=== PATIENT | female | born 1995 | race African-American/Black ===

== ENCOUNTER 2017-03-16 22:43 | Emergency (ER) | payer MEDICAID ==
[~2017-03-16] VITALS: Ht 160 cm; Wt 53.0 kg
[2017-03-17] MEDS ORDERED: TETANUS, DIPHTHERIA, PERTUSSIS VAC/PF 0.5ML (>7YR OLD) IM ONE (01:30)
[2017-03-17] MEDS ORDERED: BACITRACIN ZINC OINT UDPKT TOP ONE (01:30)
[2017-03-17 04:09] VITALS: BP 105/67
== END 2017-03-17 04:24 | disposition home or self-care (01) ==
LOC: EDBD 22:43 → ER 03-17 02:04
DX: S61.451A Open bite of right hand, initial encounter (principal); W54.0XXA Bitten by dog, initial encounter; Y93.89 Activity, other specified; Y92.89 Other specified places as the place of occurrence of the external cause; Y99.8 Other external cause status
CPT/HCPCS: 73130; 81025; 90471; 90715; 99284; X7700; Z7610